=== PATIENT | female | born 1990 | race Caucasian/White ===

== ENCOUNTER → 2017-07-11 | Outpatient (CLI) | payer MEDICAID ==
[~2017-07-11] MED LIST: MEDR150V IM; No meds per pt.
== END | disposition home or self-care (01) ==
LOC: RAD 16:09
PROVIDERS: ATTEND Family Medicine
DX: N20.0 Calculus of kidney (principal); N13.30 Unspecified hydronephrosis; M54.9 Dorsalgia, unspecified
CPT/HCPCS: 76770

== ENCOUNTER 2020-01-09 08:16 | Emergency (ER) | payer SELFPAY ==
[~2020-01-09] VITALS: Ht 157.5 cm; Wt 57.6 kg
--- NOTE | 2020-01-09 08:59 | NUR ---
SENTHIL IS AT THE BEDSIDE
[2020-01-09] MEDS ORDERED: ONDANSETRON 2MG/ML, 2ML ONE (09:14)
[2020-01-09] MEDS ORDERED: MORPHINE SULFATE 4 MG/ML, 1ML ONE (09:14)
--- NOTE | 2020-01-09 09:18 | NUR ---
ULTRASOUND IS AT THE BEDSIDE FOR STUDY
[2020-01-09 09:27] LABS: BASOPHILS # (AUTO) 0.02 x10^3/uL (0-0.1); BASOPHILS % (AUTO) 0 % (0-1); EOSINOPHILS # (AUTO) 0.06 x10^3/uL (0-0.4); EOSINOPHILS % (AUTO) 1 % (1-7); LYMPHOCYTES # (AUTO) 1.97 x10^3/uL (1-3.4); LYMPHOCYTES % (AUTO) 31 % (22-44); MD NO; MEAN CORPUSCULAR HGB CONC 34.2 g/dL (32.4-35.8); MEAN CORPUSCULAR VOLUME 96.4 fL (80-100); MEAN PLATELET VOLUME 7.6 fL (7.4-10.4); MONOCYTES # (AUTO) 0.41 x10^3/uL (0.2-0.8); MONOCYTES % (AUTO) 6 % (2-9); NEUTROPHILS # (AUTO) 3.99 x10^3/uL (1.8-6.8); NEUTROPHILS % (AUTO) 62 % (42-75); PLATELET COUNT 287 x10^3/uL (130-400); RED BLOOD COUNT 4.76 x10^6/uL (3.82-5.3); RED CELL DISTRIBUTION WIDTH 13.4 % (9.6-15.2)
[2020-01-09] MEDS ORDERED: SODIUM CHLORIDE 0.9% 1,000ML IVBOLUS ONE (09:30)
[2020-01-09] MEDS ORDERED: MORPHINE SULFATE 4 MG/ML, 1ML IVPush PRN (09:30)
[2020-01-09] MEDS ORDERED: ONDANSETRON 2MG/ML, 2ML IVPush ONE (09:30)
[2020-01-09 09:37] LABS: ALBUMIN 4.4 g/dL (3.4-5.0); ANION GAP 8 mmol/L (5-15); CALCIUM 9.6 mg/dL (8.5-10.1); CHLORIDE 105 mmol/L (98-107)
[2020-01-09 09:38] LABS: ALANINE AMINOTRANSFERASE 22 U/L (12-78); CREATININE 0.89 mg/dL (0.55-1.02)
[2020-01-09 09:43] LABS: ALKALINE PHOSPHATASE 119 U/L (45-117); BILIRUBIN,TOTAL 2.2 mg/dL (0.2-1.0); TOTAL PROTEIN 8.7 g/dL (6.4-8.2)
--- NOTE | 2020-01-09 09:55 | NUR ---
PT AMBULATED TO THE RESTOOM WITH A STEADY GAIT. URINE SAMPLE COLLECTED, AND WALKED TO THE LAB FOR ANALYSIS.
[2020-01-09 10:09] LABS: MICROSCOPIC NOT IND
--- NOTE | 2020-01-09 10:10 | NUR ---
status addressed by radiology prior to film.
[2020-01-09 10:13] LABS: CULTURE INDICATED? NO
--- NOTE | 2020-01-09 10:35 | NUR ---
silvina is at the bedside for dispo.
--- NOTE | 2020-01-09 10:50 | NUR ---
pt to ct w tech
[2020-01-09] MEDS ORDERED: METOCLOPRAMIDE 5 MG/ML, 2ML ONE (10:54)
[2020-01-09] MEDS ORDERED: METOCLOPRAMIDE 5 MG/ML, 2ML IVPush ONE (11:00)
[2020-01-09 11:28] VITALS: BP 113/72
== END 2020-01-09 11:38 | disposition home or self-care (01) ==
LOC: ED 10:00
DX: R10.32 Left lower quadrant pain (principal); R39.15 Urgency of urination; R10.9 Unspecified abdominal pain; R11.0 Nausea
CPT/HCPCS: 36415; 74018; 74176; 76770; 80053; 81003; 83690; 84703; 85025; 96374; 96375; 99285; J2270; J2405; J2765; J7030